=== PATIENT | female | born 1965 | race Caucasian/White ===

== ENCOUNTER 2021-03-06 14:24 | Emergency (ER) | payer OTHER ==
[~2021-03-06 14:24] MED LIST: FLEXERIL 10 MG10 MG PO; MEDROL4 MG PO; Voltaren Gel 1 % TOP
[2021-03-06 18:57] LABS: HEMOGLOBIN 12.5 gm/dl (12.3-15.3); RED BLOOD COUNT 4.31 M/UL (4.00-5.10); WHITE BLOOD COUNT 7.8 K/UL (4.5-11.0)
[2021-03-06] MEDS ORDERED: IBUPROFEN600 MG PO (19:01)
[2021-03-06 19:15] LABS: BUN/CREATININE RATIO 22 (0-10)
== END 2021-03-06 19:30 | disposition home or self-care (01) ==
LOC: ER1 14:24
PROVIDERS: Nurse Practitioner
DX: S80.12XA Contusion of left lower leg, initial encounter (principal); W20.8XXA Other cause of strike by thrown, projected or falling object, initial encounter; Y92.009 Unspecified place in unspecified non-institutional (private) residence as the place of occurrence of the external cause
CPT/HCPCS: 73030; 73564; 73701; 80053; 85025; 85652; 86140; 99284; Q9967

== ENCOUNTER 2021-12-31 21:50 | Inpatient (IN) | payer OTHER ==
[~2021-12-31] VITALS: Ht 170.2 cm; Wt 68.0 kg
[~2021-12-31 21:50] MED LIST changes: +IBUPROFEN600 MG PO
[2021-12-31 23:46] LABS: HEMOGLOBIN 12.7 gm/dl (12.3-15.3); RED BLOOD COUNT 4.42 M/UL (4.00-5.10); WHITE BLOOD COUNT 8.9 K/UL (4.5-11.0)
[2022-01-01 00:08] LABS: BUN/CREATININE RATIO 19 (0-10)
[2022-01-01] MEDS ORDERED: PROAIR HFA8.5 GM INH (11:07)
[2022-01-01] MEDS ORDERED: VENTOLIN/PROVE0.5 ML INH (11:08)
--- NOTE | 2022-01-01 15:23 | NUR ---
NOTIFIED DR ADAN OF PT WANTING SOMETHING FOR PAIN, DR ADANED STATES HE WILL ORDER MOTRIN.
[2022-01-02 05:00] LABS: HEMOGLOBIN 11.3 gm/dl (12.3-15.3); RED BLOOD COUNT 3.98 M/UL (4.00-5.10)
[2022-01-02 05:02] LABS: WHITE BLOOD COUNT 5.5 K/UL (4.5-11.0)
[2022-01-02 05:21] LABS: BUN/CREATININE RATIO 23 (0-10)
[2022-01-03 05:54] LABS: RED BLOOD COUNT 3.94 M/UL (4.00-5.10)
[2022-01-03 06:25] LABS: BUN/CREATININE RATIO 36 (0-10)
[2022-01-04 06:58] LABS: HEMOGLOBIN 11.1 gm/dl (12.3-15.3); RED BLOOD COUNT 3.98 M/UL (4.00-5.10); WHITE BLOOD COUNT 5.4 K/UL (4.5-11.0)
[2022-01-04 07:25] LABS: BUN/CREATININE RATIO 46 (0-10)
--- NOTE | 2022-01-05 01:53 | NUR ---
PT COMPLAING OF BACK PAIN, 7 ON A SCALE OF 1-10, PRN MEDS GIVEN WITH NO REFLIEF, CALLED MD ABOUT PAIN, NEW ORDERS NOTED.
[2022-01-05 07:49] LABS: BUN/CREATININE RATIO 33 (0-10)
--- NOTE | 2022-01-05 20:01 | NUR ---
PATIENT HAS ECHO ORDERED I CHECKED WITH DR ADAN TO SEE IF IT NEEDED TO BE A STAT ORDER AND HE STATED "IT CAN WAIT TILL Thursday01/06/22." WILL PASS ON IN REPORT TO FOLLOW UP WITH ORDER ON 01/06/22.
[2022-01-06 05:23] LABS: HEMOGLOBIN 10.5 gm/dl (12.3-15.3); RED BLOOD COUNT 3.71 M/UL (4.00-5.10); WHITE BLOOD COUNT 5.5 K/UL (4.5-11.0)
[2022-01-06 05:24] LABS: BUN/CREATININE RATIO 34 (0-10)
[2022-01-07 05:45] LABS: HEMOGLOBIN 10.3 gm/dl (12.3-15.3); RED BLOOD COUNT 3.63 M/UL (4.00-5.10); WHITE BLOOD COUNT 5.2 K/UL (4.5-11.0)
[2022-01-07 06:10] LABS: BUN/CREATININE RATIO 37 (0-10)
[2022-01-07] MEDS ORDERED: ACETAMINOPHEN325 MG PO (14:02)
[2022-01-07] MEDS ORDERED: NICOTINE PATCH1 EAC2 TOP (14:02)
[2022-01-07] MEDS ORDERED: LAMOTRIGINE100 MG PO (14:02)
[2022-01-07] MEDS ORDERED: HYDROCODON-ACE1 EAC4 PO (14:02)
[2022-01-07] MEDS ORDERED: BUDESONIDE0.5 MG/2 M NEB (14:02)
[2022-01-07] MEDS ORDERED: IBUPROFEN600 MG PO (14:02)
[2022-01-07] MEDS ORDERED: PROVENTIL HFA6.7 GM INH (14:02)
[2022-01-07] MEDS ORDERED: ENOXAPARIN40 MG/0.4 SC (14:02)
[2022-01-07] MEDS ORDERED: HYDROXYZINE PAM25 MG PO (14:02)
[2022-01-07] MEDS ORDERED: PROTONIX 40 MG40 M1 PO (14:02)
[2022-01-07] MEDS ORDERED: MELATONIN3 MG PO (14:02)
== END 2022-01-07 19:04 | DRG 871 ==
LOC: ER1 21:50 → CDU 01-01 03:07 → MED SURG 4 01-01 08:51
PROVIDERS: Internal Medicine; Nurse Practitioner Family; Physician Assistant; ADMIT Internal Medicine
PROC: 3E03329 Introduction of Other Anti-infective into Peripheral Vein, Percutaneous Approach (ICD-10-PCS; principal; 2022-01-01)
PROC: B24BZZZ Ultrasonography of Heart with Aorta (ICD-10-PCS; 2022-01-06)
PROC: 02HV33Z Insertion of Infusion Device into Superior Vena Cava, Percutaneous Approach (ICD-10-PCS; 2022-01-06)
DX: A41.02 Sepsis due to Methicillin resistant Staphylococcus aureus (principal); J18.9 Pneumonia, unspecified organism; I76 Septic arterial embolism; J44.0 Chronic obstructive pulmonary disease with (acute) lower respiratory infection; K21.9 Gastro-esophageal reflux disease without esophagitis; I65.22 Occlusion and stenosis of left carotid artery; R91.8 Other nonspecific abnormal finding of lung field; G47.00 Insomnia, unspecified; F12.20 Cannabis dependence, uncomplicated; Z90.49 Acquired absence of other specified parts of digestive tract; Z98.890 Other specified postprocedural states; Z87.891 Personal history of nicotine dependence
CPT/HCPCS: ECHO; 36415; 71046; 80048; 80053; 80202; 80307; 82550; 82553; 82962; 84484; 85025; 85027; 86140; 87040; 87070; 87205; 93306; 94640; 94664; 94760; 96365; 96366; 96367; 96372; 96375; 96376; 99285; C1751; G0378; J1650; J1885; J2185; J2270; J2543; J3370; J7030; J7070; Q0177; Q9967; U0002